=== PATIENT | male | born 1960 | race Caucasian/White ===

== ENCOUNTER 2017-10-22 06:53 | Emergency (ER) | payer OTHER ==
[~2017-10-22] VITALS: Ht 180.3 cm; Wt 83.9 kg
[~2017-10-22 06:53] MED LIST: VYTORIN 10-20 M1 TAB; [UNRECOGNIZED DRUG - OTHER] TP
[2017-10-22] MEDS ORDERED: COZAAR50 MG (07:12)
[2017-10-22] MEDS ORDERED: KETO10TA2 PO (11:51)
== END 2017-10-22 12:07 | disposition home or self-care (01) ==
LOC: ER 06:53
DX: G43.809 Other migraine, not intractable, without status migrainosus (principal); G44.89 Other headache syndrome; I10 Essential (primary) hypertension